=== PATIENT | male | born 1995 | race Caucasian/White ===

== ENCOUNTER 2016-09-20 17:49 | Emergency (ER) | payer SELFPAY ==
[~2016-09-20] VITALS: Ht 172.7 cm; Wt 53.3 kg
[2016-09-20] MEDS ORDERED: SODIUM CHLORIDE FLUSH 3 ML SYR IV PRN (19:30)
[2016-09-20] MEDS ORDERED: SODIUM CHLORIDE FLUSH 10 ML SYR IV PRN (19:30)
[2016-09-20] MEDS ORDERED: OSELTAMIVIR (TAMIFLU) 75 MG CAP PO ONE (19:30)
[2016-09-20 21:30] VITALS: BP 122/73
== END 2016-09-20 21:25 | disposition home or self-care (01) ==
LOC: ED 17:50
DX: J06.9 Acute upper respiratory infection, unspecified (principal); E86.0 Dehydration; R11.10 Vomiting, unspecified
CPT/HCPCS: 96360; 99283; J7030